=== PATIENT | male | born 1980 | race American Indian/Alaskan Native ===

== ENCOUNTER 2016-05-24 12:55 | Emergency (ER) | payer OTHER ==
[2016-05-24 13:06] VITALS: BP 136/82
--- NOTE | 2016-05-24 15:47 | UC ---
Shawn Ho Adam, scribed for Cary Cherry MD on 05/24/16 at 1306 . Abdominal Pain Male HPI - HPI Summary HPI Summary: Pt is a 36 year old male presenting with intermittent LUQ abdominal pain x approx 2 years. Occurs approx 2x / week. He states that the pain is localized around the LUQ of his abdomen and the left side of his ribcage. He states that sometimes he feels like the pain is more in his back (on the same side). Lying down causes the pain to resolve. Sitting up aggravates the pain. He states that occasionally he will go "a few weeks" without experiencing any pain. He decided to come in today because he was already here with a friend. He also reports that recently his urine has been more bubbly than usual. Additionally he has been having respiratory symptoms for the past 3 months since spending time with people who had the same symptoms. He denies any discoloration of the urine, discharge from the penis, or sores around the penis. No melena / brbrpr. No significant diarrhea / consitipation. No lambert stool or unusual color to stool. Fam hx - mom with a "colon problem," with pain in similar area. - History of Current Complaint Chief Complaint: UCAbdominalPain Stated Complaint: ABDOMINAL PAIN Hx Obtained From: Patient Onset/Duration: Gradual Onset, Lasting Weeks, Still Present Timing: Intermittent Episodes Lasting: - Hours Severity Initially: Moderate Severity Currently: Moderate Location: Diffuse, Discrete At: LUQ Radiates: Yes Radiates to: Back Aggravating Factor(s):: Movement - Sitting up Alleviating Factor(s): Position - Lying down Associated Signs And Symptoms: Positive: Other - Bubbly urine - Allergies/Home Medications Allergies/Adverse Reactions: Allergies Allergy/AdvReac Type Severity Reaction Status Date / Time No Known Allergies Allergy Verified 01/07/16 14:34 Home Medications: Home Medications NK [No Home Medications Reported] 05/24/16 [History Confirmed 05/24/16] PMH/Surg Hx/FS Hx/Imm Hx Previously Healthy: Yes GI/ History Of: Denies: Gastroesophageal Reflux, Ulcer, Gastrointestinal Bleed, Gall Bladder Disease, Kidney Stones, Diverticulitis, Renal Disease, Urosepsis - Surgical History Surgical History: None - Family History Known Family History: Negative: Cardiac Disease, Hypertension, Diabetes - Social History Occupation: Student Lives: With Family - Domestic partner female Alcohol Use: Weekly Substance Use Type: None Smoking Status (MU): Never Smoked Tobacco Review of Systems Constitutional: Negative Skin: Negative Eyes: Negative ENT: Negative Respiratory: Negative Cardiovascular: Other Gastrointestinal: Abdominal Pain Genitourinary: Other - see hpi Motor: Negative Neurovascular: Negative Musculoskeletal: Negative Neurological: Negative Psychological: Negative All Other Systems Reviewed And Are Negative: Yes - Comments Additional Review of Systems Comments: See HPI Physical Exam Triage Information Reviewed: Yes Appearance: Well-Nourished Vital Signs: Initial Vital Signs Temp 99.0 F 05/24/16 13:00 Pulse 56 05/24/16 13:00 Resp 18 05/24/16 13:00 BP 136/82 05/24/16 13:00 Pulse Ox 100 05/24/16 13:00 Vital Signs Reviewed: Yes Eye Exam: Normal ENT Exam: Normal Neck exam: Normal Respiratory Exam: Normal Respiratory: Positive: Chest non-tender, Lungs clear, Normal breath sounds, No respiratory distress, No accessory muscle use Cardiovascular Exam: Normal Cardiovascular: Positive: RRR, No Murmur, Pulses Normal, Brisk Capillary Refill Abdominal Exam: Normal Abdomen Description: Positive: Nontender, No Organomegaly, Soft, Bruit, Other: - soft, nondistended. No focal organ enlargement appreciated. No cvat. (pt does note that currently he does not have pain; as such, examination does not currently reflect problem at it's worse) Musculoskeletal Exam: Normal Neurological Exam: Normal Psychological Exam: Normal Skin Exam: Normal - Additional Comments * Appearance: Well-Nourished * Eye Exam: Normal * ENT Exam: Normal * Neck exam: Normal, No adenopathy appreciated * Respiratory Exam: Normal, no dyspnea, no tachypnea, normal respiratory rate * Cardiovascular Exam: Normal * Cardiovascular: Heart rate regular, good general skin color, good capillary refill * Abdominal Exam: Normal * Abdomen Description: Nontender, No Organomegaly, Soft * Bowel Sounds: Present * Musculoskeletal Exam: Normal * Musculoskeletal: Strength Intact * Neurological Exam: Normal: nonfocal, grossly intact * Psychological Exam: Normal: conversing easily and appropriately * Skin Exam: Normal: no visible or reported rash Abd Pain Male Course/Dx - Course Course Of Treatment: No new problems while in [facility]. Reviewed urine dip with pt. Urine cx sent. Offered blood work (cbc, cmp) but pt declines. He does not want blood work drawn here, but plans to f/u with [facility], where he will see a doctor and perhaps have blood work ordered. Has had cxr's in the past, most recently in Dec 2015. I reviewed this with him. No current pain here. But since this is a recurrent as yet unexplained issue, he will f/u either with a local pcp, or with [facility]. May need colonoscopy (?). Questions answered to the best of my ability. - Differential Dx/Clinical Impression Provider Diagnoses: Abdominal pain Discharge - Discharge Plan Condition: Stable Disposition: HOME Patient Education Materials: Abdominal Pain (ED) Referrals: [facility] Leon [Primary Care Provider] - [facility] [place]] Additional Instructions: Follow up with [facility] and / or [facility]. Strongly recommend establishing a primary care physician. Seek medical attention sooner for worse or new problems in the meantime. Urine culture in the lab. You will be notified if positive. Incidentally, you have scoliosis as noted on a prior chest x-ray from December 2015 The documentation as recorded by the Shawn banuelos Adam accurately reflects the service I personally performed and the decisions made by me, Cary Cherry MD.
== END 2016-05-24 13:57 | disposition home or self-care (01) ==
LOC: UCEAST 12:55
DX: R10.12 Left upper quadrant pain (principal)
CPT/HCPCS: 81003; 87086; 99211; G0463

== ENCOUNTER 2016-07-12 20:56 | Emergency (ER) | payer OTHER ==
[2016-07-12 21:03] VITALS: BP 149/97
[2016-07-12] MEDS ORDERED: Cephalexin CAP* 500 MG PO ONE (21:44)
--- NOTE | 2016-07-12 21:44 | ED ---
Skin Complaint - HPI Summary HPI Summary: 36M presents with needle into left arm. He was in a dressing room in a store. They had pins in the door handle and he stood up and his left arm went into the pins. He states the area bleed for a little. He states he thought the pins when in deep. His last tetanus was 4 years ago. - History of Current Complaint Chief Complaint: EDExtremityUpper Time Seen by Provider: 07/12/16 21:12 Stated Complaint: ACCIDENT NEEDLES IN LEFT ARM Pain Intensity: 3 - Allergy/Home Medications Allergies/Adverse Reactions: Allergies Allergy/AdvReac Type Severity Reaction Status Date / Time No Known Allergies Allergy Verified 07/12/16 21:03 PMH/Surg Hx/FS Hx/Imm Hx Endocrine/Hematology History: Denies: Hx Diabetes, Hx Thyroid Disease Cardiovascular History: Denies: Hx Hypertension Respiratory History: Denies: Hx Asthma, Hx Chronic Obstructive Pulmonary Disease (COPD) GI History: Denies: Hx Gall Bladder Disease, Hx Gastrointestinal Bleed, Hx Ulcer, Hx Urosepsis History: Denies: Hx Kidney Stones, Hx Renal Disease Infectious Disease History: No Infectious Disease History: Denies: Hx Hepatitis, Hx Human Immunodeficiency Virus (HIV), Traveled Outside the [place] in Last 30 Days - Family History Known Family History: Negative: Cardiac Disease, Hypertension, Diabetes - Social History Alcohol Use: Weekly Substance Use Type: Reports: None Hx Tobacco Use: No Smoking Status (MU): Never Smoked Tobacco Review of Systems Negative: Fever Negative: Chest Pain Negative: Shortness Of Breath Positive: Other - pins into arm All Other Systems Reviewed And Are Negative: Yes Physical Exam Triage Information Reviewed: Yes Vital Signs On Initial Exam: Initial Vitals Temp Pulse Resp BP Pulse Ox 98.7 F 70 14 149/97 100 07/12/16 21:00 07/12/16 21:00 07/12/16 21:00 07/12/16 21:00 07/12/16 21:00 Vital Signs Reviewed: Yes Appearance: Positive: Well-Appearing Skin: Positive: Warm, Dry, Other - pin point lesions on left arm Head/Face: Positive: Normal Head/Face Inspection Eyes: Positive: Normal, Conjunctiva Clear Respiratory/Lung Sounds: Positive: Clear to Auscultation, Breath Sounds Present Cardiovascular: Positive: Normal, RRR Diagnostics - Vital Signs Vital Signs Temp Pulse Resp BP Pulse Ox 07/12/16 21:00 98.7 F 70 14 149/97 100 - Laboratory Lab Statement: Any lab studies that have been ordered have been reviewed, and results considered in the medical decision making process. Course/Dx - Course Course Of Treatment: 36M presents with get puncture wound in arm from pins. tetanus is up to date. cleaned area. he is very concerned about infection and would like antibiotics. will do keflex to ppx. patient understands and agrees with plan - Differential Diagnoses - Skin Complaint Differential Diagnoses: Other - laceration, puncture, abrasion - Diagnoses Provider Diagnoses: Puncture wound Discharge - Discharge Plan Condition: Good Disposition: HOME Prescriptions: Cephalexin CAP* [Keflex 500 CAP*] 500 mg PO BID #9 cap Patient Education Materials: Puncture Wound (ED) Referrals: No Primary Care Phys,NOPCP [Primary Care Provider] - Additional Instructions: Keep area clean, place neosporin on area Take antibiotic twice a day for 5 days Return to ED if develop fever, spreading redness, or any new or worsening symptoms
== END 2016-07-12 21:53 | disposition home or self-care (01) ==
LOC: ED 20:56
DX: S41.132A Puncture wound without foreign body of left upper arm, initial encounter (principal); W27.3XXA Contact with needle (sewing), initial encounter; Y93.9 Activity, unspecified; Y92.512 Supermarket, store or market as the place of occurrence of the external cause; Y99.9 Unspecified external cause status
CPT/HCPCS: 99282; A9270-GY

== ENCOUNTER 2016-07-29 21:15 | Emergency (ER) | payer OTHER ==
--- NOTE | 2016-07-29 22:35 | ED ---
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 After a few minutes he felt an itching sensation on his right forearm where her leaned and then noticed some redness developing. He washed the area with soap, water and an alcohol wipe. He came to the ED for evaluation. He denies pain, streaking, SOB, CP or decreased ROM. He does not know what could have been on the counter, but he does know it wasn't anything that hasn't been in there all along. He also says he was bitten by a mosquito and this might be the cause of the area. - History of Current Complaint Chief Complaint: EDExtremityUpper Time Seen by Provider: 07/29/16 21:28 Stated Complaint: BURN ON RT ARM Hx Obtained From: Patient Onset/Duration: Started Minutes Ago Skin Exposure Onset/Duration: Minutes Ago Timing: Constant Onset Severity: Mild Current Severity: Mild Pain Intensity: 3 Skin Location: Arm - right forearm Character: Swelling, Pruritus Aggravating Symptom(s): Nothing Alleviating Symptom(s): Nothing Associated Signs & Symptoms: Negative Related History: Other: - chemical from a lab - Allergy/Home Medications Allergies/Adverse Reactions: Allergies Allergy/AdvReac Type Severity Reaction Status Date / Time No Known Allergies Allergy Verified 07/29/16 21:22 PMH/Surg Hx/FS Hx/Imm Hx Previously Healthy: Yes Endocrine/Hematology History: Denies: Hx Diabetes, Hx Thyroid Disease Cardiovascular History: Denies: Hx Hypertension Respiratory History: Denies: Hx Asthma, Hx Chronic Obstructive Pulmonary Disease (COPD) GI History: Denies: Hx Gall Bladder Disease, Hx Gastrointestinal Bleed, Hx Ulcer, Hx Urosepsis History: Denies: Hx Kidney Stones, Hx Renal Disease Infectious Disease History: No Infectious Disease History: Denies: Hx Hepatitis, Hx Human Immunodeficiency Virus (HIV), Traveled Outside the [place] in Last 30 Days - Family History Known Family History: Negative: Cardiac Disease, Hypertension, Diabetes - Social History Occupation: Employed Full-time Lives: Alone Alcohol Use: Weekly Substance Use Type: Reports: None Hx Tobacco Use: No Smoking Status (MU): Never Smoked Tobacco Review of Systems Negative: Myalgia, Decreased ROM, Edema Positive: Other - nickel size area of mild erythema Negative: Paresthesia, Numbness All Other Systems Reviewed And Are Negative: Yes Physical Exam Triage Information Reviewed: Yes Vital Signs On Initial Exam: Initial Vitals Temp Pulse Resp BP Pulse Ox 98.8 F 78 16 142/95 100 07/29/16 21:15 07/29/16 21:15 07/29/16 21:15 07/29/16 21:15 07/29/16 21:15 Vital Signs Reviewed: Yes Appearance: Positive: Well-Appearing, No Pain Distress, Well-Nourished Skin: Positive: Warm, Skin Color Reflects Adequate Perfusion, Dry, Soft, Erythema @ - nickel size area of erythema Head/Face: Positive: Normal Head/Face Inspection Eyes: Positive: EOMI, ARABELLA, Conjunctiva Clear ENT: Positive: Hearing grossly normal Respiratory/Lung Sounds: Positive: Breath Sounds Present Cardiovascular: Positive: RRR Musculoskeletal: Positive: Strength/ROM Intact Neurological: Positive: Sensory/Motor Intact, Alert, Oriented to Person Place, Time, NV Bundle Intact Distally, Normal Gait Psychiatric: Positive: Affect/Mood Appropriate AVPU Assessment: Alert Diagnostics - Vital Signs Vital Signs Temp Pulse Resp BP Pulse Ox 07/29/16 21:40 98.8 F 78 16 142/98 100 07/29/16 21:15 98.8 F 78 16 142/95 100 - Laboratory Lab Statement: Any lab studies that have been ordered have been reviewed, and results considered in the medical decision making process. Course/Dx - Differential Diagnoses - Skin Complaint Differential Diagnoses: Abscess, Allergic Reaction, Contact Dermatitis, Local Allergic Reaction, MRSA, Systemic Illness, Urticaria - Diagnoses Provider Diagnoses: Contact dermatitis Discharge - Discharge Plan Condition: Stable Disposition: HOME Patient Education Materials: Contact Dermatitis (ED) Referrals: No Primary Care Phys,NOPCP [Primary Care Provider] - [facility] [Outside] Additional Instructions: Follow-up with [facility] as needed. Return to the emergency department if symptoms worsen.
[2016-07-29 22:41] VITALS: BP 119/78
== END 2016-07-29 22:39 | disposition home or self-care (01) ==
LOC: ED 21:15
DX: L25.9 Unspecified contact dermatitis, unspecified cause (principal)
CPT/HCPCS: 99281

== ENCOUNTER 2016-08-09 09:56 | Emergency (ER) | payer OTHER ==
[2016-08-09 10:35] VITALS: BP 142/103
[2016-08-09] MEDS ORDERED: DOXYcycline CAP(*) 100 MG PO ONE (11:26)
--- NOTE | 2016-08-09 11:32 | UC ---
Skin Complaint HPI - HPI Summary HPI Summary: Noted tick on R upper thigh 2 days ago. Concerned about the tiny red ring around the bite. "everyone on my property has Lyme." Unsure how long the tick was attached. - History of Current Complaint Hx Obtained From: Patient Onset/Duration: Sudden Onset Skin Exposure Onset/Duration: Days Ago Timing: Constant Onset Severity: Mild Current Severity: Mild Location: Discrete Aggravating: Nothing Alleviating: Nothing Associated Signs & Symptoms: Positive: Rash Related History: Insect Bite/Sting <Ruth Clay - Last Filed: 08/09/16 11:27> <Josefina Echeverria - Last Filed: 08/09/16 12:41> - History of Current Complaint Chief Complaint: UCSkin Time Seen by Provider: 08/09/16 11:04 Stated Complaint: TICK BITE - Allergy/Home Medications Allergies/Adverse Reactions: Allergies Allergy/AdvReac Type Severity Reaction Status Date / Time No Known Allergies Allergy Verified 08/09/16 10:35 Home Medications: Home Medications NK [No Home Medications Reported] 08/09/16 [History Confirmed 08/09/16] Review of Systems Constitutional: Negative Skin: Other - tick bite Eyes: Negative ENT: Negative Respiratory: Negative Cardiovascular: Negative Gastrointestinal: Negative Genitourinary: Negative Motor: Negative Neurovascular: Negative Musculoskeletal: Negative Neurological: Negative Psychological: Negative All Other Systems Reviewed And Are Negative: Yes <Ruth Clay - Last Filed: 08/09/16 11:27> PMH/Surg Hx/FS Hx/Imm Hx Endocrine History Of: Denies: Diabetes, Thyroid Disease Cardiovascular History Of: Denies: Cardiac Disorders, Hypertension Respiratory History Of: Denies: COPD, Asthma GI/ History Of: Denies: Gastroesophageal Reflux, Ulcer, Gastrointestinal Bleed, Gall Bladder Disease, Kidney Stones, Diverticulitis, Renal Disease, Urosepsis - Surgical History Surgical History: None - Family History Known Family History: Negative: Cardiac Disease, Hypertension, Diabetes - Social History Alcohol Use: Rare Substance Use Type: None Smoking Status (MU): Never Smoked Tobacco <Ruth Clay - Last Filed: 08/09/16 11:27> Physical Exam Triage Information Reviewed: Yes Appearance: Well-Appearing, No Pain Distress, Well-Nourished Vital Signs: Initial Vital Signs Temp 98.7 F 08/09/16 10:24 Pulse 62 08/09/16 10:24 Resp 14 08/09/16 10:24 BP 142/103 08/09/16 10:24 Pulse Ox 100 08/09/16 10:24 Vital Signs Reviewed: Yes Eye Exam: Normal Eyes: Positive: Conjunctiva Clear ENT Exam: Normal ENT: Positive: Normal ENT inspection, Hearing grossly normal, Pharynx normal, TMs normal Dental Exam: Normal Neck exam: Normal Neck: Positive: Supple, Nontender, No Lymphadenopathy Respiratory Exam: Normal Respiratory: Positive: Chest non-tender, Lungs clear, Normal breath sounds, No respiratory distress, No accessory muscle use Cardiovascular Exam: Normal Cardiovascular: Positive: RRR, No Murmur Musculoskeletal Exam: Normal Neurological Exam: Normal Neurological: Positive: Alert Psychological Exam: Normal Skin Exam: Other - tick bite site benign, no erythema, drainage, or streaking <Ruth Clay - Last Filed: 08/09/16 11:27> Vital Signs: Initial Vital Signs Temp 98.7 F 08/09/16 10:24 Pulse 62 08/09/16 10:24 Resp 14 08/09/16 10:24 BP 142/103 08/09/16 10:24 Pulse Ox 100 08/09/16 10:24 <Josefina Echeverria - Last Filed: 08/09/16 12:41> Course/Dx - Diagnoses Provider Diagnoses: tick bite. elevated blood pressure due to anxiety <Ruth Clay - Last Filed: 08/09/16 11:27> Discharge <Ruth Clay - Last Filed: 08/09/16 11:27> <Josefina Echeverria - Last Filed: 08/09/16 12:41> - Discharge Plan Condition: Stable Disposition: HOME Patient Education Materials: Tick Bite (ED) Referrals: [facility] [Outside] - 2 Weeks Additional Instructions: Please arrange to see a primary care provider within a month for your routine health needs. TICK BITE: You have been bitten by a tick. Once the tick is removed, these "bites" usually cause no problems. Tick fever, tick paralysis, Paraje Spotted fever, and Lyme disease are uncommon -- but you should mention this tick bite to your doctor if you develop unusual symptoms in the next several weeks. If you develop any of the following, please see your physician promptly: (1) Fever, chills, or generalized malaise associated with a headache. (2) A red round area at the site of the bite (or elsewhere) (3) Joint pain, joint swelling or generalized weakness. (4) Redness, swelling, or drainage at the site of the bite. Check yourself, your children and your pets for ticks whenever you've been in an area where ticks live. To remove a tick, grasp it firmly with some tweezers or a string in a slipknot as close to its head as possible and pull it steadily. Ticks do not have a typical "head" attached to their body. There are mouth parts sticking out which they use to feed. If there are mouth parts left behind in the wound there is NO increased risk of Lyme infection; however, the chances of a bacterial skin infection (cellulitis) are higher. If mouth parts remain after tick removal, the best thing to do is apply warm soaks to the area 3-4 times per day to encourage the skin to expel the foreign material. WHEN A TICK IS NOT ENGORGED AND HAS BEEN ON LESS THAN 24 HOURS - THE RISK FOR LYME IS NEGLIGIBLE. YOU CAN REMOVE THE TICK AND OBSERVE THE AREA ON YOUR OWN. FOLLOW-UP CARE: You should contact your private physician for follow-up care if you develop spreading redness near the site of the bite or on any other areas of the body. If you are unable to get a timely appointment, or if you are worsening, call us or return for re-evaluation. Attestation Statement User Type: Provider - I was available for consult. This patient was seen by the ELENA. The patient was not presented to, seen by, or examined by me. -Ludivina <Josefina Echeverria - Last Filed: 08/09/16 12:41>
== END 2016-08-09 12:04 | disposition home or self-care (01) ==
LOC: UCEAST 09:56
DX: S70.361A Insect bite (nonvenomous), right thigh, initial encounter (principal); W57.XXXA Bitten or stung by nonvenomous insect and other nonvenomous arthropods, initial encounter
CPT/HCPCS: 99212; A9270-GY; G0463

== ENCOUNTER 2016-10-19 19:17 | Emergency (ER) | payer OTHER ==
[2016-10-19 19:27] VITALS: BP 124/89
--- NOTE | 2016-10-19 19:42 | UC ---
Hand/Wrist HPI - HPI Summary HPI Summary: complaint of right finger pain that started after knicking finger against bike chain squeezed his finger and some pus came out found a little white dot and is worried that something is in there UTD on tetanus 4 years ago - History Of Current Complaint Chief Complaint: UCSkin Stated Complaint: FINGER COMPLAINT Time Seen by Provider: 10/19/16 19:36 Hx Obtained From: Patient - Allergies/Home Medications Allergies/Adverse Reactions: Allergies Allergy/AdvReac Type Severity Reaction Status Date / Time No Known Allergies Allergy Verified 10/19/16 19:21 PMH/Surg Hx/FS Hx/Imm Hx Previously Healthy: Yes - Surgical History Surgical History: None - Family History Known Family History: Negative: Cardiac Disease, Hypertension, Diabetes - Social History Occupation: Employed Full-time Lives: With Family Alcohol Use: Rare Substance Use Type: None Smoking Status (MU): Never Smoked Tobacco - Immunization History Most Recent Tetanus Shot: Pt unsure Review of Systems Constitutional: Negative Skin: Rash Eyes: Negative ENT: Negative Respiratory: Negative Cardiovascular: Negative Gastrointestinal: Negative Genitourinary: Negative Motor: Negative Neurovascular: Negative Musculoskeletal: Negative Neurological: Negative Psychological: Negative All Other Systems Reviewed And Are Negative: Yes Physical Exam Triage Information Reviewed: Yes Appearance: No Pain Distress, Well-Nourished Vital Signs: Initial Vital Signs Temp 98.1 F 10/19/16 19:21 Pulse 53 10/19/16 19:21 Resp 16 10/19/16 19:21 BP 124/89 10/19/16 19:21 Pulse Ox 100 10/19/16 19:21 Vital Signs Reviewed: Yes Eyes: Positive: Conjunctiva Clear ENT: Positive: Pharynx normal, TMs normal Neck: Positive: No Lymphadenopathy Respiratory: Positive: Lungs clear, Normal breath sounds, No respiratory distress, No accessory muscle use Cardiovascular: Positive: RRR, No Murmur, Pulses Normal Musculoskeletal: Positive: Other: - right middle finger- 0.5 cm area of draining induration end of finger no foreign object seen or felt Neurological: Positive: Alert Psychological Exam: Normal Skin Exam: Normal Hand/Wrist Course/Dx - Differential Dx/Diagnosis Differential Diagnosis/HQI/PQRI: Cellulitis Provider Diagnoses: cellulitis- right middle finger Discharge - Discharge Plan Condition: Stable Disposition: HOME Prescriptions: Cephalexin CAP* [Keflex CAP*] 500 mg PO TID #21 cap Patient Education Materials: Cellulitis (ED) Referrals: No Primary Care Phys,NOPCP [Primary Care Provider] - [facility] [place] [facility] [Outside] Additional Instructions: Please start antibiotic as directed Increase fluids and rest Take acetaminophen or ibuprofen for fever or pain Please review your discharge instructions. If your symptoms do not improve please call your primary care provider or return to urgent care.
[2016-10-19] MEDS ORDERED: Tetan/Diph/Pertus SYR(Tdap)* 0.5 ML SYR(BOOSTRIX) use SYR IM ONE (19:51)
== END 2016-10-19 20:00 | disposition home or self-care (01) ==
LOC: UCEAST 19:17
DX: L03.011 Cellulitis of right finger (principal)
CPT/HCPCS: 99212; G0463

== ENCOUNTER 2016-11-16 22:36 | Emergency (ER) | payer OTHER ==
[2016-11-16 22:44] VITALS: BP 146/88
== END 2016-11-17 00:13 | disposition left against medical advice (07) ==
LOC: ED 22:36
DX: R53.1 Weakness (principal); Z53.21 Procedure and treatment not carried out due to patient leaving prior to being seen by health care provider

== ENCOUNTER 2017-06-09 21:00 | Emergency (ER) | payer OTHER ==
[2017-06-09 21:11] VITALS: BP 140/85
[2017-06-09] MEDS ORDERED: Polymyx/Trimethoprim OPTH* 10 ML BTL RIGHT EYE ONE (21:21)
--- NOTE | 2017-06-09 21:24 | UC ---
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 Patient has no problems with his vision - History of Current Complaint Chief Complaint: UCEye Stated Complaint: EYE COMPLAINT Time Seen by Provider: 06/09/17 21:12 Hx Obtained From: Patient Onset/Duration: Sudden Onset, Lasting Days, Still Present Timing: Constant Severity Initially: Mild Severity Currently: Mild Pain Intensity: 2 Pain Scale Used: 0-10 Numeric Location of Injury: Eye Lid (lower) Aggravating Factor(s): Nothing Alleviating Factor(s): Nothing Associated Signs And Symptoms: Positive: Negative - Allergies/Home Medications Allergies/Adverse Reactions: Allergies Allergy/AdvReac Type Severity Reaction Status Date / Time No Known Allergies Allergy Verified 06/09/17 21:12 Home Medications: Home Medications NK [No Home Medications Reported] 06/09/17 [History Confirmed 06/09/17] PMH/Surg Hx/FS Hx/Imm Hx Previously Healthy: Yes - Surgical History Surgical History: None - Family History Known Family History: Positive: Other - lung CA Negative: Cardiac Disease, Hypertension, Diabetes - Social History Occupation: Employed Full-time Lives: With Family Alcohol Use: Occasionally Substance Use Type: None Smoking Status (MU): Never Smoked Tobacco - Immunization History Most Recent Influenza Vaccination: none Most Recent Tetanus Shot: Pt unsure Review of Systems Constitutional: Negative Skin: Negative Eyes: Eye Redness - Right eye lower lid outer third 2 mm stye ENT: Negative Respiratory: Negative Cardiovascular: Negative Gastrointestinal: Negative Genitourinary: Negative Motor: Negative Neurovascular: Negative Musculoskeletal: Negative Neurological: Negative Psychological: Negative Is Patient Immunocompromised?: No All Other Systems Reviewed And Are Negative: Yes Physical Exam Triage Information Reviewed: Yes Appearance: Well-Appearing, No Pain Distress, Well-Nourished Vital Signs: Initial Vital Signs Temp 96.8 F 06/09/17 21:06 Pulse 64 06/09/17 21:06 Resp 15 06/09/17 21:06 BP 140/85 06/09/17 21:06 Pulse Ox 100 06/09/17 21:06 Vital Signs Reviewed: Yes Eye Exam: Normal Eyes: Positive: Conjunctiva Clear, Other: - Small pustular inside right lower lid ENT Exam: Normal ENT: Positive: Normal ENT inspection, Hearing grossly normal. Negative: Nasal congestion, Trismus, Muffled voice, Hoarse voice Dental Exam: Normal Neck exam: Normal Neck: Positive: Supple Respiratory Exam: Normal Respiratory: Positive: No respiratory distress, No accessory muscle use Cardiovascular Exam: Normal Cardiovascular: Positive: RRR, Pulses Normal, Brisk Capillary Refill Musculoskeletal Exam: Normal Musculoskeletal: Positive: Strength Intact, ROM Intact, No Edema Neurological Exam: Normal Neurological: Positive: Alert Psychological Exam: Normal Skin Exam: Normal Eye Complaint Course/Dx - Course Course Of Treatment: Warm compresses Polytrim ophthalmic drops follow with ophthalmology if not resolved in 3-4 days or at any time the area worsens - Differential Dx/Diagnosis Provider Diagnoses: pustula right lower eye lid Discharge - Sign-Out/Discharge Documenting (check all that apply): Discharge - Discharge Plan Condition: Stable Disposition: HOME Patient Education Materials: Stye (ED), Warm Compress or Soak (ED) Referrals: Ellis Call MD [Medical Doctor] - 5 Days Jasen Lowery MD [Medical Doctor] - 5 Days - Billing Disposition and Condition Condition: STABLE Disposition: HOME
== END 2017-06-09 21:33 | disposition home or self-care (01) ==
LOC: UCEAST 21:00
DX: H00.032 Abscess of right lower eyelid (principal)
CPT/HCPCS: 99211; G0463

== ENCOUNTER 2019-02-18 21:09 | Emergency (ER) | payer OTHER ==
[2019-02-18 21:19] VITALS: BP 146/93
--- NOTE | 2019-02-18 21:34 | UC ---
Throat Pain/Nasal Darron HPI - HPI Summary HPI Summary: 39 y/o male presents to the urgent care c/o swelling on his soft palette w/ hard papule for 5 weeks. He saw his PCP when lesion ws like a cyst filled w/ fluid the size of a saman and he Rx Amoxicillin. Swelling has gone down and now there is a hard lump that is white and non painful. During that time had a sore throat and fatigue, but not fever, or difficulty swallowing. He is concerned about cancer since he has been doing some research on the internet. Pt denies GOINS, ear pain, cough, dizziness, weight loss, SOB, chest pain, abdominal pain, N/ V/d, hoarseness. - History of Current Complaint Chief Complaint: UCGeneralIllness Stated Complaint: THROAT PAIN Time Seen by Provider: 02/18/19 21:31 Hx Obtained From: Patient Onset/Duration: Gradual Onset, Lasting Weeks - 5 weeks, Still Present, Worse Since - 1 week w/ hard lesion in the soft palate Severity: Mild Pain Intensity: 0 Pain Scale Used: 0-10 Numeric Cough: None Associated Signs & Symptoms: Positive: Other - hard papule in the soft palate. Negative: Nasal Discharge, Fever Related History: Seasonal Allergies - Epiglottits Risk Factors Epiglottis Risk Factors: Negative - Allergies/Home Medications Allergies/Adverse Reactions: Allergies Allergy/AdvReac Type Severity Reaction Status Date / Time No Known Allergies Allergy Verified 02/18/19 21:19 PMH/Surg Hx/FS Hx/Imm Hx Previously Healthy: Yes - Pt denies PMHX - Surgical History Surgical History: None - Family History Known Family History: Positive: Other - lung CA Negative: Cardiac Disease, Hypertension, Diabetes - Social History Occupation: Employed Full-time Lives: With Family Alcohol Use: Weekly Substance Use Type: None Smoking Status (MU): Never Smoked Tobacco - Immunization History Most Recent Influenza Vaccination: none Most Recent Tetanus Shot: Pt unsure Review of Systems All Other Systems Reviewed And Are Negative: Yes Constitutional: Positive: Negative Skin: Positive: Negative Eyes: Positive: Negative ENT: Positive: Sore Throat - hard non painful papule in the RT side of the soft palate Respiratory: Positive: Negative Cardiovascular: Positive: Negative Gastrointestinal: Positive: Negative Genitourinary: Positive: Negative Motor: Positive: Negative Neurovascular: Positive: Negative Musculoskeletal: Positive: Negative Neurological: Positive: Negative Psychological: Positive: Negative Is Patient Immunocompromised?: No Physical Exam - Summary Physical Exam Summary: VITAL SIGNS: Reviewed. GENERAL: Patient is a well developed and nourished male who is sitting comfortably in the examining table. Patient is not in any acute respiratory distress. HEAD AND FACE: No signs of trauma. No ecchymosis, hematomas or skull depressions. No sinus tenderness. EYES: PERRLA, EOMI x 2, No injected conjunctiva, no nystagmus. No photophobia. EARS: Hearing grossly intact. Ear canals and tympanic membranes are within normal limits. MOUTH: Positive RT side of the pharynx near the Rt side of the soft palate w/ a discrete hard papule w/ surrounding erythema non tender, no exudate, No B/L tonsillar enlargement or exudate. Uvula in midline. NECK: Supple, trachea is midline, Positive anterior cervical lymphadenopathy, no JVD, no carotid bruit, no c-spine tenderness, neck with full ROM. No meningeal signs, no Kernig's or brudzinskis signs. CHEST: Symmetric, no tenderness at palpation LUNGS: Clear to auscultation bilaterally. No wheezing or crackles. CVS: Regular rate and rhythm, S1 and S2 present, no murmurs or gallops appreciated. ABDOMEN: Soft, non-tender. No signs of distention. No rebound no guarding, and no masses palpated. Bowel sounds are normal. EXTREMITIES: FROM in all major joints, no edema, no cyanosis or clubbing. NEURO: Alert and oriented x 3. No acute neurological deficits. Speech is normal and follows commands. SKIN: Dry and warm Triage Information Reviewed: Yes Vital Signs: Initial Vital Signs Temp 99.2 F 02/18/19 21:14 Pulse 64 02/18/19 21:14 Resp 16 02/18/19 21:14 BP 146/93 02/18/19 21:14 Pulse Ox 100 02/18/19 21:14 Throat Pain/Nasal Course/Dx - Course Course Of Treatment: 39 y/o male presents to the urgent care c/o swelling on his soft palette w/ hard papule for 5 weeks. He saw his PCP when lesion ws like a cyst filled w/ fluid the size of a saman and he Rx Amoxicillin. Swelling has gone down and now there is a hard lump that is white and non painful. During that time had a sore throat and fatigue, but not fever, or difficulty swallowing. He is concerned about cancer since he has been doing some research on the internet. Pt denies GOINS, ear pain, cough, dizziness, weight loss, SOB, chest pain, abdominal pain, N/ V/d, hoarseness. Hx obtained. Pt w/ positive RT side of the pharynx near the Rt side of the soft palate w/ a discrete hard papule w/ surrounding erythema non tender, no exudate, No B/L tonsilar enlargement or exudate. Uvula in midline on examination, Rapid strep : negative. Throat culture sent to lab to r/o any abnormality. Pt will be notified of any abnormality. Probably an aphthous ulcer or remnant of previous abscess. Pt's symptoms discussed w/ Dr Johnston who evaluated Pt and recommended F/u w/ ENT Dr Carney for further evaluation and treatment. Pt given referral w/ DR Carney and advised to take Ibuprofen PO if he develops any pain or swelling. Pt's BP is elevated today advised to decrease salt in diet, monitor BP and f/u with PCP for further management. D/C instructions explained. Pt understood and agreed w/ plan of care. - Differential Dx/Diagnosis Differential Diagnosis/HQI/PQRI: Epiglottitis, Foreign Body, Laryngitis, Peritonsillar Abscess, Pharyngitis, URI Provider Diagnosis: Pharyngeal lesion, Elevated BP without diagnosis of hypertension Discharge ED - Sign-Out/Discharge Documenting (check all that apply): Patient Departure - D/c home All imaging exams completed and their final reports reviewed: No Studies - Discharge Plan Condition: Stable Disposition: HOME Patient Education Materials: Mouth Lesions in Children (ED) Referrals: [facility] [place] [facility]ERR[facility] [Outside] - 3 Days Alfred Carney MD [Medical Doctor] - 2 Days Additional Instructions: 1- Rapid Strep test: negative. Throat culture was sent to lab to r/o any abnormality. You will be notified of any abnormal result for further management 2-If you develop pain or swelling Please take ibuprofen PO q6-8hrs prn after meals . 3-Please f/u w/ ENT DR Carney for further evaluation and treatment on your oral lesion. 4- Your BP is elevated today advised to decrease salt in diet, monitor BP and f/ u with PCP for further management. - Billing Disposition and Condition Condition: STABLE Disposition: Home
== END 2019-02-18 22:21 | disposition home or self-care (01) ==
LOC: UCEAST 21:09
DX: J39.2 Other diseases of pharynx (principal); R07.0 Pain in throat; R03.0 Elevated blood-pressure reading, without diagnosis of hypertension
CPT/HCPCS: 87070; 87651; 99211; G0463